=== PATIENT | male | born 1965 | race African-American/Black ===

== ENCOUNTER → 2019-05-10 | Outpatient (CLI) | payer OTHER | LOC: MHCPAIN 12:30 | DX: M47.812 Spondylosis without myelopathy or radiculopathy, cervical region (principal); R51 Headache | CPT/HCPCS: G0463 ==

== ENCOUNTER → 2019-05-19 | Outpatient (CLI) | payer OTHER | LOC: MHCPAIN 14:09 | DX: M54.2 Cervicalgia (principal) | CPT/HCPCS: J1100; Q9967 ==

== ENCOUNTER → 2019-05-31 | Outpatient (CLI) | payer OTHER | LOC: MHCPAIN 12:36 | DX: R51 Headache (principal); M47.22 Other spondylosis with radiculopathy, cervical region | CPT/HCPCS: G0463 ==